=== PATIENT | female | born 1990 | race Caucasian/White ===

== ENCOUNTER 2016-03-18 12:33 | Emergency (ER) | payer OTHER ==
[2016-03-18] MEDS ORDERED: PROMETHAZINE HCL 25 MG SUPP.RECT PR ONE (13:09)
--- NOTE | 2016-03-18 13:09 | ER Document Report ---
ED Medical Screen (RME) - General Chief Complaint: Nausea/Vomiting/Diarrhea Stated Complaint: NAUSEA/VOMITING Time seen by provider: 13:04 TRAVEL OUTSIDE OF THE [place] IN LAST 30 DAYS: No - HPI Patient complains to provider of: VOMITING AND DIARRHEA Onset: Yesterday Onset/Duration: Sudden Context: [employer] WORK[employer] WITH SAME Quality of pain: Achy Severity: Mild Pain Level: 1 Associated Symptoms: Diarrhea, Nausea, Vomiting. denies: Fever Exacerbated by: Food Relieved by: Denies Similar symptoms previously: No Recently seen / treated by doctor: No Notes: 03/18/16 13:08 HAS BEEN ABLE TO KEEP POPSICLES AND FLAT COKE DOWN - Related Data Smoking: Non-smoker Frequency of alcohol use: None Drug Abuse: None Allergies/Adverse Reactions: cefaclor [From Ceclor] Allergy (Verified 03/18/16 12:46) Iodinated Contrast Media - Oral and [IV Dye, Iodine Containing] Allergy ( Verified 03/18/16 12:46) peanut [Peanut] Allergy (Verified 03/18/16 12:46) Penicillins Allergy (Verified 03/18/16 12:46) Past Medical History - Social History Chew tobacco use (# tins/day): No Frequency of alcohol use: None Drug Abuse: None Pulmonary Medical History: Reports: Hx Asthma - sports induced Renal/ Medical History: Reports: Hx Ovarian Cysts Psychiatric Medical History: Reports: Hx Bipolar Disorder, Hx Depression - Immunizations Hx Diphtheria, Pertussis, Tetanus Vaccination: Yes Physical Exam - Vital signs Vitals: Temp Pulse Resp BP Pulse Ox 98.1 F 94 16 125/77 100 03/18/16 12:39 03/18/16 12:39 03/18/16 12:39 03/18/16 12:39 03/18/16 12:39 Course - Vital Signs Vital signs: Temp Pulse Resp BP Pulse Ox 98.1 F 94 16 125/77 100 03/18/16 12:39 03/18/16 12:39 03/18/16 12:39 03/18/16 12:39 03/18/16 12:39
[2016-03-18 13:52] LABS: APPEARANCE,URINE HAZY; BILIRUBIN,URINE SMALL (NEGATIVE); GLUCOSE, URINE NEGATIVE (NEGATIVE); KETONES,URINE 100 mg/dL (NEGATIVE); LEUKOCYTE ESTERASE,URINE LARGE (NEGATIVE); NITRITE,URINE NEGATIVE (NEGATIVE); PROTEIN,URINE 30 mg/dL (NEGATIVE); URINE SPECIFIC GRAVITY 1.023; UROBILINOGEN,URINE NEGATIVE mg/dL (<2.0)
[2016-03-18 13:53] LABS: BACTERIA,URINE 3+ /HPF
[2016-03-18] MEDS ORDERED: DEXTROSE 5%-NORMAL SALINE 1,000 ML IV ONE ×2 (14:44)
--- NOTE | 2016-03-18 14:49 | ER Document Report ---
ED General - General Chief Complaint: Nausea/Vomiting/Diarrhea Stated Complaint: NAUSEA/VOMITING Time seen by provider: 14:47 Mode of Arrival: Ambulatory Information source: Patient Notes: This is a 25-year-old female who is 17 weeks who presents to the emergency room with nausea, vomiting, not tolerating fluids for 24 hours. The patient was sent in by her nutritionalist for IV fluids. She has been on Phenergan orally but has been vomiting up the pill. She was given rectal suppository Phenergan in triage. TRAVEL OUTSIDE OF THE [place] IN LAST 30 DAYS: No - HPI Onset: Last week Onset/Duration: Gradual Quality of pain: No pain Severity: None Pain Level: Denies Associated symptoms: denies: Fever, Shortness of breath Exacerbated by: Denies Relieved by: Denies Similar symptoms previously: Yes Recently seen / treated by doctor: Yes - Related Data Allergies/Adverse Reactions: cefaclor [From Ceclor] Allergy (Verified 03/18/16 12:46) Iodinated Contrast Media - Oral and [IV Dye, Iodine Containing] Allergy ( Verified 03/18/16 12:46) peanut [Peanut] Allergy (Verified 03/18/16 12:46) Penicillins Allergy (Verified 03/18/16 12:46) Past Medical History - General Information source: Patient - Social History Smoking Status: Never Smoker Chew tobacco use (# tins/day): No Frequency of alcohol use: None Drug Abuse: None Lives with: Family Family History: Other - Grandfather with history of severe allergic reactions. Patient has suicidal ideation: No Patient has homicidal ideation: No - Past Medical History Cardiac Medical History: Reports: None Pulmonary Medical History: Reports: Hx Asthma - sports induced EENT Medical History: Reports: None Neurological Medical History: Reports: None Endocrine Medical History: Reports: None Renal/ Medical History: Reports: Hx Ovarian Cysts Malignancy Medical History: Reports: None GI Medical History: Reports: None Musculoskeltal Medical History: Reports None Psychiatric Medical History: Reports: Hx Bipolar Disorder, Hx Depression - Immunizations Hx Diphtheria, Pertussis, Tetanus Vaccination: Yes Review of Systems - Review of Systems Constitutional: denies: Chills, Fever EENT: No symptoms reported Cardiovascular: No symptoms reported Respiratory: No symptoms reported Gastrointestinal: See HPI Genitourinary: No symptoms reported Female Genitourinary: No symptoms reported Musculoskeletal: No symptoms reported Skin: No symptoms reported Hematologic/Lymphatic: No symptoms reported Neurological/Psychological: No symptoms reported Physical Exam - Vital signs Vitals: Temp Pulse Resp BP Pulse Ox 98.1 F 94 16 125/77 100 03/18/16 12:39 03/18/16 12:39 03/18/16 12:39 03/18/16 12:39 03/18/16 12:39 Notes: Physical exam: GENERAL: 44-year-old female, alert and oriented 3, no acute distress HEAD: Atraumatic, normocephalic. EYES: Pupils equal round and reactive to light, extraocular movements intact, sclera anicteric, conjunctiva are normal. ENT: Dry mucous membranes. NECK: Normal range of motion, supple without lymphadenopathy or JVD. LUNGS: Breath sounds clear to auscultation bilaterally and equal. No wheezes rales or rhonchi. HEART: Regular rate and rhythm without murmurs, rubs or gallops. ABDOMEN: Soft, nontender, system with 17 weeks , normoactive bowel sounds. No guarding, no rebound. EXTREMITIES: Normal range of motion, no pitting or edema. No clubbing or cyanosis. NEUROLOGICAL: Cranial nerves II through XII grossly intact. Normal speech, normal gait. PSYCH: Normal mood, normal affect. SKIN: Warm, Dry, normal turgor, no rashes or lesions noted. Course - Re-evaluation Re-evalutation: 03/18/16 18:49 The patient is feeling better and her nausea has been significantly improved with suppository Phenergan. She has had a number of episodes of diarrhea in the ER so I've given her a third liter of fluid. I have advised her to follow- up with the women's health care. 03/18/16 23:57 - Vital Signs Vital signs: Temp Pulse Resp BP Pulse Ox 98.1 F 86 16 135/65 H 100 03/18/16 12:39 03/18/16 19:04 03/18/16 19:04 03/18/16 19:04 03/18/16 19:04 - Laboratory Laboratory results interpreted by me: 03/18/16 13:09 Urine Protein 30 H Urine Ketones 100 H Urine Bilirubin SMALL H Ur Leukocyte Esterase LARGE H Urine Ascorbic Acid 20 H Discharge - Discharge Clinical Impression: hyperemesis gravidarum Condition: Stable Disposition: HOME, SELF-CARE Instructions: Hyperemesis Gravidarum ([facility]) Additional Instructions: Recommendations: Rest, drink small amounts of fluid frequently and advance as tolerated. Use the Phenergan suppositories in addition to the oral tablets (it does not have to be at the same time): If the nausea is bad and you cannot tolerate the medicine orally, go with the suppositories. If the diarrhea is bad and you can tolerate the pills; go with the pills. Call the women's health care clinic for follow-up. Return to the emergency room for any vaginal bleeding, abdominal pain, feeling faint or if you're unable to tolerate any fluids. Prescriptions: Promethazine HCl [Phenergan 25 mg Supp.rect] 1 supp NE Q6H #12 supp.rect Referrals: [Primary Care Provider] - Follow up as needed NUHA RAWLS MD [ACTIVE STAFF] - Follow up in 3-5 days
[2016-03-18] MEDS ORDERED: DEXTROSE 5%-1/2 NORMAL SALINE 1,000 ML IV ONE (17:53)
[2016-03-18 19:14] VITALS: BP 135/65
== END 2016-03-18 19:13 | disposition home or self-care (01) ==
LOC: ER 12:33
DX: O21.0 Mild hyperemesis gravidarum (principal); O26.892 Other specified pregnancy related conditions, second trimester; R19.7 Diarrhea, unspecified; O99.512 Diseases of the respiratory system complicating pregnancy, second trimester; J45.909 Unspecified asthma, uncomplicated; Z3A.17 17 weeks gestation of pregnancy; Z88.1 Allergy status to other antibiotic agents; Z91.041 Radiographic dye allergy status; Z91.010 Allergy to peanuts; Z88.0 Allergy status to penicillin
CPT/HCPCS: 99283; 96365; 96366; 81001; J3490

== ENCOUNTER 2016-04-12 12:09 | Outpatient (CLI) | payer OTHER ==
[2016-04-12 12:45] LABS: AMORPHOUS SEDIMENT,URINE TRACE /HPF; APPEARANCE,URINE CLOUDY; BILIRUBIN,URINE NEGATIVE (NEGATIVE); GLUCOSE, URINE NEGATIVE (NEGATIVE); KETONES,URINE NEGATIVE (NEGATIVE); LEUKOCYTE ESTERASE,URINE NEGATIVE (NEGATIVE); NITRITE,URINE NEGATIVE (NEGATIVE); PROTEIN,URINE NEGATIVE (NEGATIVE); URINE SPECIFIC GRAVITY 1.013; UROBILINOGEN,URINE NEGATIVE mg/dL (<2.0)
[2016-04-12] MEDS ORDERED: CYCLOBENZAPRINE HCL 10 MG TABLET PO ONE (12:48)
[2016-04-12 12:57] LABS: URINE BARBITURATES SCREEN NEGATIVE; URINE METHADONE SCREEN NEGATIVE; URINE OPIATES LOW NEGATIVE; URINE PHENCYCLIDINE SCREEN NEGATIVE
--- NOTE | 2016-04-12 14:01 | L&D Flow Sheet ---
LD Flowsheet Datetime Report Generated by CPN: 04/12/2016 14:00 Datetime: 04/12/2016 12:55 Vital Signs NBP Sys/Angela/Mean (mmHg): 109 (QS system process) : 65 (QS system process) : 82 (QS system process) Pulse: 80 (QS system process) Datetime: 04/12/2016 12:29 Uterine Activity Frequency (min): 1045 (Dasha Emery, RN) Pain Pain Scale: 2 (Dasha Emery, RN) Pain Presence: Intermittent (Dasha Emery, RN) Pain Type: spasm (Dasha Emery, RN) Pain Location: Back (Dasha Emery, RN) Pain Goal: 0 (Dasha Emery, RN) Vaginal Exam Vaginal Bleeding: None (Dasha Emery, RN) Maternal Assessment Level of Consciousness: Fully Conscious (Dasha Emery, RN) DTR's/Clonus: DTRs 2+; No Clonus (Dasha Emery, RN) Headache: Denies (Dasha Emery, RN) Breath Sounds, Left: Clear and Equal (Dasha Emery, RN) Breath Sounds, Right: Clear and Equal (Dasha Emery, RN) Nausea/Vomiting: Denies (Dasha Emery, RN) RUQ Epigastric Pain: Denies (Dasha Emery, RN) Datetime: 04/12/2016 12:26 Temperature (F): 98.4 (Dasha Emery, RN) Temperature (C): 36.9 (QS system process) Datetime: 04/12/2016 12:25 Vital Signs NBP Sys/Angela/Mean (mmHg): 113 (QS system process) : 62 (QS system process) : 81 (QS system process) Pulse: 86 (QS system process)
[2016-04-12] MEDS ORDERED: CYCLOBENZAPRINE HCL 10 MG TABLET ONE (14:06)
[2016-04-12] MEDS ORDERED: ACETAMINOPHEN 325 MG TABLET ONE (14:07)
== END 2016-04-12 14:40 | disposition home or self-care (01) ==
LOC: LC 12:09
PROVIDERS: ATTEND Specialist
PROC: 4A1HXCZ Monitoring of Products of Conception, Cardiac Rate, External Approach (ICD-10-PCS; principal; 2016-04-12)
DX: O99.89 Other specified diseases and conditions complicating pregnancy, childbirth and the puerperium (principal); M54.9 Dorsalgia, unspecified; Z3A.21 21 weeks gestation of pregnancy
CPT/HCPCS: 76815; 80307; 81001

== ENCOUNTER 2016-07-13 00:03 | Outpatient (CLI) | payer OTHER ==
[2016-07-13 00:33] LABS: AMORPHOUS SEDIMENT,URINE TRACE /HPF; APPEARANCE,URINE SLIGHTLY-CLOUDY; BILIRUBIN,URINE NEGATIVE (NEGATIVE); GLUCOSE, URINE NEGATIVE (NEGATIVE); KETONES,URINE NEGATIVE (NEGATIVE); LEUKOCYTE ESTERASE,URINE NEGATIVE (NEGATIVE); NITRITE,URINE NEGATIVE (NEGATIVE); PROTEIN,URINE NEGATIVE (NEGATIVE); URINE SPECIFIC GRAVITY 1.003; UROBILINOGEN,URINE NEGATIVE mg/dL (<2.0)
[2016-07-13 00:38] LABS: URINE BARBITURATES SCREEN NEGATIVE; URINE METHADONE SCREEN NEGATIVE; URINE OPIATES LOW NEGATIVE; URINE PHENCYCLIDINE SCREEN NEGATIVE
[2016-07-13] MEDS ORDERED: BETAMET ACET/BETAMET NA INJ 6 MG/1 ML ONE (01:04)
[2016-07-13] MEDS ORDERED: CEFAZOLIN 2 GM/D5W RTU 2 GM/50 ML RTUPB IV ONE (01:04)
[2016-07-13] MEDS ORDERED: NIFEDIPINE 10 MG CAPSULE ONE (01:04)
[2016-07-13] MEDS ORDERED: MAGNESIUM SULFATE 0 GM/0 ML RTUPB IV ONE (01:04)
[2016-07-13 01:52] LABS: ABSOLUTE EOSINOPHILS # (AUTO) 0.1 10^3/uL (0.0-0.6); ABSOLUTE LYMPHOCYTES (AUTO) 2.7 10^3/uL (0.5-4.7); ABSOLUTE MONOCYTES (AUTO) 0.9 10^3/uL (0.1-1.4); ABSOLUTE NEUT (AUTO) 7.4 10^3/uL (1.7-8.2); BASOPHILS % (AUTO) 0.2 % (0-2); EOSINOPHILS % (AUTO) 0.5 % (0-6); HEMATOCRIT 32.8 % (36.0-47.0); HGB HCT DIFFERENCE 0.2; LYMPHOCYTES % (AUTO) 24.6 % (13-45); MEAN CORPUSCULAR HEMOGLOBIN 25.9 pg (27.0-33.4); MEAN CORPUSCULAR HGB CONC 33.5 g/dL (32.0-36.0); MEAN CORPUSCULAR VOLUME 77 fl (80-97); MONOCYTES % (AUTO) 8.3 % (3-13); RED BLOOD COUNT 4.25 10^6/uL (3.72-5.28); RED CELL DISTRIBUTION WIDTH 14.8 % (11.5-14.0); SEGMENTED NEUTROPHILS % (AUTO) 66.4 % (42-78); WHITE BLOOD COUNT 11.2 10^3/uL (4.0-10.5)
[2016-07-13] MEDS ORDERED: BETAMET ACET/BETAMET NA INJ 6 MG/1 ML IM SCH (02:00)
[2016-07-13] MEDS ORDERED: NIFEDIPINE 10 MG CAPSULE PO ONE (02:30)
[2016-07-13] MEDS ORDERED: HYDROXYZINE PAMOATE 50 MG CAPSULE PO ONE (02:55)
[2016-07-13] MEDS ORDERED: HYDROXYZINE PAMOATE 50 MG CAPSULE ONE (02:56)
[2016-07-13] MEDS: RINGERS SOLUTION,LACTATED 1,000 ML IV PRN ×2 (02:58→06:00)
[2016-07-13] MEDS ORDERED: CEFAZOLIN 2 GM/D5W RTU 2 GM/50 ML RTUPB IV SCH (03:00)
[2016-07-13] MEDS ORDERED: NALBUPHINE HCL INJ 10 MG/1 ML AMPULE INJ ONE (03:16)
[2016-07-13] MEDS ORDERED: NALBUPHINE HCL INJ 10 MG/1 ML AMPULE ONE (03:21)
[2016-07-13 04:02] LABS: CHLAM PCR NOT DETECTED (NOT DETECT)
[2016-07-13 05:07] LABS: AMNISURE (ROM) NEGATIVE (NEGATIVE)
[2016-07-13] MEDS ORDERED: MAGNESIUM SULFATE 100 ML IV ONE (05:28)
[2016-07-13] MEDS ORDERED: MAGNESIUM SULFATE/D5W 100 ML IV SCH (05:30)
[2016-07-13] MEDS ORDERED: MAGNESIUM SULFATE 4 GM/100 ML RTUPB IV ONE (05:36)
[2016-07-13] MEDS ORDERED: MAGNESIUM SULFATE 20 GM/500 ML IV PRN (05:40)
[2016-07-13] MEDS ORDERED: MAGNESIUM SULFATE 4 GM/D5W 100 ML IV ONE (05:45)
[2016-07-13] MEDS ORDERED: NIFEDIPINE 10 MG CAPSULE PO SCH (06:00)
--- NOTE | 2016-07-13 06:34 | L&D Progress Notes ---
PROGRESS NOTES Datetime Report Generated by CPN: 07/13/2016 06:34 PROGRESS NOTE Impression: Labor Impression: Labor Plan: Transfer Comment: Have continued to attempt transfer of pt. [facility] NICU full. [facility] NICU full. Called back to [facility] and spoke to Dr Lord who suggested talking directly to neurosurgery about delivering here. Left message for neurosurge at [facility] to call no call back. Contacted roll operator who believes shift changed and will contact oncoming neurosurgery. Discussed possibilty of airlifting to tertiary care facility out of state if neurosurg and nicu availability present. Also discussed option of sending pt to [facility] for delivery with neurosurg backup with knowlege that her infant might be shipped elsewhere. Comment: Pt still with painful ctx despite procardia and therapeutic rest. Contacted [facility] for transfer due to LP shunt and planned delivery there with neurosurgical support. However at 0440 Dr Lord of [facility] there reports NICU full and unable to accept. Contacted [facility] at [phone] and their NICU is also full. Will attempt to call [facility]. VAGINAL EXAM Dilatation: 1 Effacement: 50 Station: -2 Contractions: 2-4 min FETUS A Monitoring: External US FHR Category: Category I FHR Category: Category I SIGNATURE SIGNATURE: [id number] Signature: with User ID: [email or web address]
[2016-07-13] MEDS ORDERED: HYDROMORPHONE HCL INJ/PF 2 MG/ML AMPULE IV ONE (06:50)
[2016-07-13] MEDS ORDERED: HYDROMORPHONE HCL INJ/PF 2 MG/ML AMPULE ONE (06:54)
--- NOTE | 2016-07-13 07:20 | L&D Progress Notes ---
PROGRESS NOTES Datetime Report Generated by CPN: 07/13/2016 07:19 PROGRESS NOTE Impression: Labor Comment: Started magnesium sulfate for tocolysis. No call back from neurosurgery at [facility] despite leaving 2 messages. Spoke with KIERAN Hsu at [facility] for 3 rd time and she recommended here with combined spinal epidural if unable to find accepting facility. She recommended watching for fever or signs of increased intracranial pressure post op to eval for LP shunt problems. Pt states Dr. Gianna Samaniego has images of her LP shunt. Although she had planned delivery at [facility], due to bed availabilty situation will attempt tranfer to [facility]. Contacted transfer center and awaiting call back. FETUS C SIGNATURE: [id number] Signature: with User ID: [email or web address]
--- NOTE | 2016-07-13 08:02 | L&D Progress Notes ---
PROGRESS NOTES Datetime Report Generated by CPN: 07/13/2016 08:01 PROGRESS NOTE Impression: Labor Plan: Transfer Comment: Dr. Casarez at [facility] accepts pt in transfer. Has had steroids and on ancef and magnesium. FETUS C SIGNATURE: [id number] Signature: with User ID: [email or web address]
[2016-07-13] MEDS ORDERED: CEFAZOLIN 1 GM/D5W RTU 50 ML IV SCH (10:00)
== END 2016-07-13 08:25 | disposition short-term general hospital (02) ==
LOC: LC 00:03 → LR 01:05 → UNDOADMOB 01:05 → LC 08:25 → UNDODISOB 08:25
PROVIDERS: ATTEND Specialist
PROC: 4A1HXCZ Monitoring of Products of Conception, Cardiac Rate, External Approach (ICD-10-PCS; principal; 2016-07-13)
DX: O60.03 Preterm labor without delivery, third trimester (principal); Z3A.33 33 weeks gestation of pregnancy; Z98.2 Presence of cerebrospinal fluid drainage device
CPT/HCPCS: 59025; 84112; 86900; 86901; 36415; 87210; 86850; 85025; 87077; 86592; 81001; 87081; 80307; 87491; 87591; J3475; J2300; J3490; J1170; J0702; J0690

== ENCOUNTER 2016-07-24 14:28 | Outpatient (CLI) | payer OTHER ==
[2016-07-24 15:24] LABS: APPEARANCE,URINE CLOUDY; BILIRUBIN,URINE NEGATIVE (NEGATIVE); GLUCOSE, URINE NEGATIVE (NEGATIVE); KETONES,URINE NEGATIVE (NEGATIVE); LEUKOCYTE ESTERASE,URINE MODERATE (NEGATIVE); NITRITE,URINE NEGATIVE (NEGATIVE); PROTEIN,URINE NEGATIVE (NEGATIVE); URINE SPECIFIC GRAVITY 1.009; UROBILINOGEN,URINE NEGATIVE mg/dL (<2.0)
[2016-07-24 15:36] LABS: URINE BARBITURATES SCREEN NEGATIVE; URINE METHADONE SCREEN NEGATIVE; URINE OPIATES LOW NEGATIVE; URINE PHENCYCLIDINE SCREEN NEGATIVE
[2016-07-24] MEDS ORDERED: FLUCONAZOLE 100 MG TABLET PO ONE (17:25)
== END 2016-07-24 16:26 | disposition home or self-care (01) ==
LOC: LC 14:28
PROVIDERS: ATTEND Obstetrics & Gynecology
PROC: 4A1HXCZ Monitoring of Products of Conception, Cardiac Rate, External Approach (ICD-10-PCS; principal; 2016-07-24)
DX: O47.03 False labor before 37 completed weeks of gestation, third trimester (principal); Z3A.35 35 weeks gestation of pregnancy
CPT/HCPCS: 80307; 81001

== ENCOUNTER → 2017-02-04 | Outpatient (CLI) | payer OTHER ==
--- NOTE | 2017-02-04 15:56 | RADIOLOGY REPORT (SQ) ---
EXAM DESCRIPTION: U/S RETROPERITON (RENAL/AORTA) COMPLETED DATE/TIME: 02/04/2017 2:30 pm REASON FOR STUDY: UTI (N39.0) N39.0 URINARY TRACT INFECTION, SITE NOT SPECIFIED COMPARISON: None. TECHNIQUE: Dynamic and static grayscale images acquired of the kidneys and bladder and recorded on P ACS. Additional selected color Doppler and spectral images recorded. LIMITATIONS: None. FINDINGS: RIGHT KIDNEY: Normal size, 11.6 cm in length. Normal echogenicity. No solid or suspicious masses. No hydronephrosis. No calcifications. LEFT KIDNEY: Normal size, 12.7 cm in length. Normal echogenicity. No solid or suspicious masses. No hydronephrosis. No calcifications. BLADDER: No masses. Bilateral ureteral jets are identified. OTHER FINDINGS: No other significant finding. IMPRESSION: NORMAL RENAL AND BLADDER ULTRASOUND. TECHNICAL DOCUMENTATION: JOB ID: [id number] [employer]- All Rights Reserved
== END ==
LOC: RAD 13:55
PROVIDERS: ATTEND Urology
DX: N39.0 Urinary tract infection, site not specified (principal)
CPT/HCPCS: 76770

== ENCOUNTER 2017-03-23 06:46 | Emergency (ER) | payer OTHER ==
[2017-03-23] MEDS ORDERED: ACETAMINOPHEN 325 MG TABLET PO ONE (07:08)
[2017-03-23] MEDS ORDERED: NORMAL SALINE 1000 ML 1,000 ML IV PRN (07:29)
[2017-03-23] MEDS ORDERED: KETOROLAC TROMETHAMINE INJ/PF 30 MG/1 ML SDV IV ONE (07:29)
--- NOTE | 2017-03-23 07:30 | ER Document Report ---
ED Fever - General Chief Complaint: Fever Stated Complaint: FEVER Time Seen by Provider: 03/23/17 07:26 Notes: Patient started having fever yesterday. Has some mild back pain as well. Had a UTI approximately 2 months ago. Thinks it may be another UTI. Has a history of pseudotumor cerebri and has an LP shunt in. Has never had any shunt malfunctions or infections. No other sick contacts at home. No shortness of breath. No cough. Does have some runny nose this morning. Pain is mostly located on the right low back area. TRAVEL OUTSIDE OF THE [place] IN LAST 30 DAYS: No - HPI Onset: Yesterday Onset/Duration: Gradual Quality of pain: Achy Severity: Moderate Pain Level: 3 Context: Urinary tract infection Associated symptoms: None, Chills, Fever, Other - Back pain. denies: Chest pain Similar symptoms previously: No Recently seen / treated by doctor: No - Related Data Allergies/Adverse Reactions: cefaclor [From Ceclor] Allergy (Verified 01/15/17 09:22) Iodinated Contrast- Oral and IV Dye [IV Dye, Iodine Containing] Allergy ( Verified 01/15/17 09:22) peanut [Peanut] Allergy (Verified 01/15/17 09:22) Penicillins Allergy (Verified 01/15/17 09:22) Past Medical History - General Information source: Patient - Social History Smoking Status: Never Smoker Smoking Education Provided: No Frequency of alcohol use: None Drug Abuse: None Lives with: Family Family History: Reviewed & Not Pertinent, Other - Grandfather with history of severe allergic reactions. - Past Medical History Cardiac Medical History: Reports: None Pulmonary Medical History: Reports: Hx Asthma - sports induced Other: Migraines, pseudotumor cerebri, LP shunt Endocrine Medical History: Reports: None Renal/ Medical History: Reports: Hx Ovarian Cysts. Denies: Hx Peritoneal Dialysis Malignancy Medical History: Reports: None GI Medical History: Reports: None Musculoskeltal Medical History: Reports Other - Back pain Skin Medical History: Reports None Psychiatric Medical History: Reports: Hx Bipolar Disorder, Hx Depression Surgical Hx: Other - LP shunt, cholecystectomy - Immunizations Hx Diphtheria, Pertussis, Tetanus Vaccination: Yes Review of Systems - Review of Systems Constitutional: Chills, Fever, Malaise EENT: No symptoms reported, Nose discharge Cardiovascular: No symptoms reported Respiratory: No symptoms reported Gastrointestinal: No symptoms reported Genitourinary: No symptoms reported Female Genitourinary: No symptoms reported Musculoskeletal: Back pain Skin: No symptoms reported Hematologic/Lymphatic: No symptoms reported Neurological/Psychological: No symptoms reported Physical Exam - Vital signs Vitals: Temp Pulse Resp BP Pulse Ox 101.4 F H 141 H 18 127/76 H 96 03/23/17 06:56 03/23/17 06:56 03/23/17 06:56 03/23/17 06:56 03/23/17 06:56 Interpretation: Tachycardic - General General appearance: Appears well, Alert - HEENT Head: Normocephalic, Atraumatic Eyes: Normal Pupils: PERRL - Respiratory Respiratory status: No respiratory distress Chest status: Nontender Breath sounds: Normal Chest palpation: Normal - Cardiovascular Rhythm: Regular Heart sounds: Normal auscultation Murmur: No - Abdominal Inspection: Normal Distension: No distension Bowel sounds: Normal Tenderness: Nontender Organomegaly: No organomegaly - Back Back: Normal, Nontender, Other - Right CVA tenderness - Extremities General upper extremity: Normal inspection, Nontender, Normal color, Normal ROM , Normal temperature General lower extremity: Normal inspection, Nontender, Normal color, Normal ROM , Normal temperature, Normal weight bearing. No: Carlos's sign - Neurological Neuro grossly intact: Yes Cognition: Normal Orientation: AAOx4 Edna Coma Scale Eye Opening: Spontaneous Edna Coma Scale Verbal: Oriented Edna Coma Scale Motor: Obeys Commands Edna Coma Scale Total: 15 Speech: Normal Motor strength normal: LUE, RUE, LLE, RLE Sensory: Normal - Psychological Associated symptoms: Normal affect, Normal mood - Skin Skin Temperature: Warm Skin Moisture: Dry Skin Color: Normal Course - Re-evaluation Re-evalutation: 03/23/17 07:38 We will get fluids, pain medication, fever control and reassess. 03/23/17 09:03 Laboratory 03/23/17 03/23/17 03/23/17 07:53 07:53 07:53 WBC 16.3 H RBC 5.21 Hgb 12.6 Hct 38.1 MCV 73 L MCH 24.2 L MCHC 33.0 RDW 16.2 H Plt Count 245 Seg Neutrophils % 79.5 H Lymphocytes % 11.3 L Monocytes % 8.8 Eosinophils % 0.1 Basophils % 0.3 Absolute Neutrophils 12.9 H Absolute Lymphocytes 1.8 Absolute Monocytes 1.4 Absolute Eosinophils 0.0 Absolute Basophils 0.1 Sodium 134.3 L Potassium 4.4 Chloride 99 Carbon Dioxide 24 Anion Gap 11 BUN 12 Creatinine 0.60 Est GFR ( Amer) > 60 Est GFR (Non-Af Amer) > 60 Glucose 105 Calcium 9.4 Total Bilirubin 0.6 Direct Bilirubin 0.2 Neonat Total Bilirubin Not Reportable Neonat Direct Bilirubin Not Reportable Neonat Indirect Bili Not Reportable AST 16 ALT 26 Alkaline Phosphatase 104 Total Protein 6.8 Albumin 4.1 Serum HCG, Qual NEGATIVE Urine Color Urine Appearance Urine pH Ur Specific [place] Urine Protein Urine Glucose (UA) Urine Ketones Urine Blood Urine Nitrite Urine Bilirubin Urine Urobilinogen Ur Leukocyte Esterase Urine WBC (Auto) Urine RBC (Auto) Urine Bacteria (Auto) Squamous Epi Cells Auto Urine Mucus (Auto) Urine Ascorbic Acid Influenza A (Rapid) Influenza B (Rapid) 03/23/17 03/23/17 07:53 07:53 WBC RBC Hgb Hct MCV MCH MCHC RDW Plt Count Seg Neutrophils % Lymphocytes % Monocytes % Eosinophils % Basophils % Absolute Neutrophils Absolute Lymphocytes Absolute Monocytes Absolute Eosinophils Absolute Basophils Sodium Potassium Chloride Carbon Dioxide Anion Gap BUN Creatinine Est GFR ( Amer) Est GFR (Non-Af Amer) Glucose Calcium Total Bilirubin Direct Bilirubin Neonat Total Bilirubin Neonat Direct Bilirubin Neonat Indirect Bili AST ALT Alkaline Phosphatase Total Protein Albumin Serum HCG, Qual Urine Color YELLOW Urine Appearance SLIGHTLY-CLOUDY Urine pH 5.0 Ur Specific [place] 1.018 Urine Protein 30 H Urine Glucose (UA) NEGATIVE Urine Ketones NEGATIVE Urine Blood SMALL H Urine Nitrite NEGATIVE Urine Bilirubin NEGATIVE Urine Urobilinogen NEGATIVE Ur Leukocyte Esterase SMALL H Urine WBC (Auto) 11 Urine RBC (Auto) 5 Urine Bacteria (Auto) 1+ Squamous Epi Cells Auto 9 Urine Mucus (Auto) FEW Urine Ascorbic Acid NEGATIVE Influenza A (Rapid) NEGATIVE Influenza B (Rapid) NEGATIVE 03/23/17 09:15 Heart rate still approximately 110 but patient feeling much better. Was initially in the 140s. Fever is down. Comfortable discharging her even though her heart rate slightly elevated because she does not have any other significant criteria for prolonged observation. Patient given strict warning signs that if she developed fever, neck stiffness, worsening symptoms or concern , flank pain or other issues she should return immediately. Will prescribe her some Macrobid because there are 1+ bacteria and some trace leukocyte esterase in the urine with a history of UTI and an LP shunt do not want her to get an infection. Patient is okay with that plan as well. - Vital Signs Vital signs: Temp Pulse Resp BP Pulse Ox 101.4 F H 141 H 18 127/76 H 96 03/23/17 06:56 03/23/17 06:56 03/23/17 06:56 03/23/17 06:56 03/23/17 06:56 03/23/17 09:11 Patient feeling a lot better. Influenza was negative. Labs show a slightly elevated WBC count. Urine culture was added. No convincing evidence or source of infection at this time. Patient requesting to go home. Will reassess vital signs and DC appropriately. - Laboratory Result Diagrams: 03/23/17 07:53 03/23/17 07:53 Laboratory results interpreted by me: 03/23/17 03/23/17 03/23/17 07:53 07:53 07:53 WBC 16.3 H MCV 73 L MCH 24.2 L RDW 16.2 H Seg Neutrophils % 79.5 H Lymphocytes % 11.3 L Absolute Neutrophils 12.9 H Sodium 134.3 L Urine Protein 30 H Urine Blood SMALL H Ur Leukocyte Esterase SMALL H Discharge - Discharge Clinical Impression: Viral syndrome Condition: Good Disposition: HOME, SELF-CARE Instructions: Acetaminophen, Fever ([facility]), Viral Syndrome ([facility]) Prescriptions: Nitrofurantoin Monohyd/M-Cryst [Macrobid 100 mg Capsule] 100 mg PO BID 10 Days # 20 capsule
[2017-03-23 08:18] LABS: ABSOLUTE BASOPHILS # (AUTO) 0.1 10^3/uL (0.0-0.2); ABSOLUTE LYMPHOCYTES (AUTO) 1.8 10^3/uL (0.5-4.7); ABSOLUTE MONOCYTES (AUTO) 1.4 10^3/uL (0.1-1.4); ABSOLUTE NEUT (AUTO) 12.9 10^3/uL (1.7-8.2); BASOPHILS % (AUTO) 0.3 % (0-2); EOSINOPHILS % (AUTO) 0.1 % (0-6); HEMATOCRIT 38.1 % (36.0-47.0); HEMOGLOBIN 12.6 g/dL (12.0-15.5); LYMPHOCYTES % (AUTO) 11.3 % (13-45); MEAN CORPUSCULAR HEMOGLOBIN 24.2 pg (27.0-33.4); MEAN CORPUSCULAR VOLUME 73 fl (80-97); MONOCYTES % (AUTO) 8.8 % (3-13); PLATELET COUNT 245 10^3/uL (150-450); RED BLOOD COUNT 5.21 10^6/uL (3.72-5.28); RED CELL DISTRIBUTION WIDTH 16.2 % (11.5-14.0); SEGMENTED NEUTROPHILS % (AUTO) 79.5 % (42-78); TOTAL CELLS COUNTED % (AUTO) 100 %; WHITE BLOOD COUNT 16.3 10^3/uL (4.0-10.5)
[2017-03-23 08:19] LABS: APPEARANCE,URINE SLIGHTLY-CLOUDY; BILIRUBIN,URINE NEGATIVE (NEGATIVE); COLOR,URINE YELLOW; GLUCOSE, URINE NEGATIVE (NEGATIVE); KETONES,URINE NEGATIVE (NEGATIVE); LEUKOCYTE ESTERASE,URINE SMALL (NEGATIVE); NITRITE,URINE NEGATIVE (NEGATIVE); PROTEIN,URINE 30 mg/dL (NEGATIVE); URINE SPECIFIC GRAVITY 1.018; UROBILINOGEN,URINE NEGATIVE mg/dL (<2.0)
[2017-03-23 08:29] LABS: A TYPE INFLUENZA AG NEGATIVE (NEGATIVE); B INFLUENZA AG NEGATIVE (NEGATIVE)
[2017-03-23 08:36] LABS: ALBUMIN 4.1 g/dL (3.5-5.0); ANION GAP 11 (5-19); BLOOD UREA NITROGEN 12 mg/dL (7-20); CALCIUM 9.4 mg/dL (8.4-10.2); CARBON DIOXIDE 24 mmol/L (22-30); CHLORIDE 99 mmol/L (98-107); GLUCOSE 105 mg/dL (75-110); POTASSIUM 4.4 mmol/L (3.6-5.0); SODIUM 134.3 mmol/L (137-145); TOTAL PROTEIN 6.8 g/dL (6.3-8.2)
[2017-03-23 08:38] LABS: ALANINE AMINOTRANSFERASE 26 U/L (9-52); ALKALINE PHOSPHATASE 104 U/L (38-126); ASPARTATE AMINO TRANSFERASE 16 U/L (14-36); BILIRUBIN,DIRECT 0.2 mg/dL (0.0-0.4); BILIRUBIN,TOTAL 0.6 mg/dL (0.2-1.3)
[2017-03-23 09:17] VITALS: BP 121/70
== END 2017-03-23 09:26 | disposition home or self-care (01) ==
LOC: ER 06:46
DX: B34.9 Viral infection, unspecified (principal); R50.9 Fever, unspecified; M54.5 Low back pain; R53.81 Other malaise; R00.0 Tachycardia, unspecified; J45.909 Unspecified asthma, uncomplicated; G93.2 Benign intracranial hypertension; Z98.2 Presence of cerebrospinal fluid drainage device; Z87.440 Personal history of urinary (tract) infections; Z88.1 Allergy status to other antibiotic agents; Z91.010 Allergy to peanuts; Z88.0 Allergy status to penicillin; Z91.041 Radiographic dye allergy status
CPT/HCPCS: 99284; 96361; 96374; 36415; 87086; 84703; 85025; 87088; 80053; 81001; 87186; 87804; J1885; J7030